=== PATIENT | female | born 1965 | race Hispanic/Latino ===

== ENCOUNTER 2018-03-18 17:17 | Emergency (ER) | payer BC ==
--- NOTE | 2018-03-18 18:45 | ED.PDOC ---
History of Present Illness - General Chief Complaint: General Stated Complaint: needs labs for dialysis Time Seen by Provider: 03/18/18 17:21 Source: patient, family Exam Limitations: no limitations - History of Present Illness Initial Comments: The patient is a 52-year-old female presenting to the emergency room after she was sent here from the dialysis center for workup to see if she needs dialysis. The patient has been receiving dialysis in [place] for the last 3-4 months for renal failure. Source of the renal failure she thinks is her diabetes and high blood pressure. She is uncertain of the details. She does have an indwelling internal jugular catheter for dialysis. She is actually feeling fine. She had dialysis one week ago. She has not yet been set up with nephrology here. She has not had dialysis in the [place]. She was sent here for evaluation to see if she needs emergent dialysis or to see if she can follow-up with nephrology in the coming days Timing/Duration: unsure Severity: mild Improving Factors: nothing Worsening Factors: nothing Associated Symptoms: denies symptoms Allergies/Adverse Reactions: Allergies NO KNOWN ALLERGY Allergy (Verified 10/23/16 18:49) Home Medications: Ambulatory Orders Lisinopril [Prinivil] 10 mg PO DAILY #30 tab 10/26/16 Ferrous Sulfate [Slow Release Iron] 250 mg PO DAILY 03/18/18 Furosemide 40 mg PO BID 03/18/18 Linagliptin [Tradjenta] 5 mg PO BID 03/18/18 Omeprazole 20 mg PO DAILY 03/18/18 Pravastatin Sodium 10 mg PO DAILY 03/18/18 Review of Systems - Review of Systems Constitutional: States: no symptoms reported EENTM: States: no symptoms reported Respiratory: States: no symptoms reported Cardiology: States: no symptoms reported Gastrointestinal/Abdominal: States: no symptoms reported Genitourinary: States: no symptoms reported Musculoskeletal: States: no symptoms reported Skin: States: no symptoms reported Neurological: States: no symptoms reported Endocrine: States: no symptoms reported All other Systems: No Change from Baseline Past Medical History (General) - Patient Medical History Hx Seizures: No Hx Stroke: No Hx Asthma: No Hx of COPD: No Hx Congestive Heart Failure: No Hx Pacemaker: No Hx Hypertension: Yes Hx Diabetes: Yes Hx Renal Disease: Yes Hx MRSA: No - Vaccination History Hx Influenza Vaccination: No Hx Pneumococcal Vaccination: No - Social History Hx Tobacco Use: No Hx Alcohol Use: No Hx Substance Use: No Hx Substance Use Treatment: No Hx Depression: No - Female History Patient : No Family Medical History - Family History Mother Family History: Unknown Physical Exam - Physical Exam General Appearance: Alert, Comfortable, No apparent distress Eye Exam: bilateral normal Ears, Nose, Throat: hearing grossly normal, normal ENT inspection, normal pharynx Neck: full range of motion, supple, other - ight IJ is in place Respiratory: lungs clear, normal breath sounds, no respiratory distress, no accessory muscle use Cardiovascular/Chest: normal peripheral pulses, regular rate, rhythm, no edema Peripheral Pulses: radial,right: 2+, radial,left: 2+, dorsalis pedis,right: 2+, dorsalis pedis,left: 2+ Gastrointestinal/Abdominal: non tender, soft Rectal Exam: deferred Back Exam: normal inspection, no CVA tenderness, no vertebral tenderness Extremity: normal range of motion, non-tender, normal inspection, no pedal edema Neurologic: alert, normal mood/affect, oriented x 3 Skin Exam: normal color Comments: Vital Signs - 24 hr 03/18/18 17:35 Temperature 96 F L Pulse Rate [ 88 Left Brachial] Respiratory 18 Rate Blood Pressure 158/78 [Left Arm] O2 Sat by Pulse 99 Oximetry Progress - Progress Progress: 03/18/18 18:45 the patient is a 52-year-old female presenting to the emergency room for evaluation to determine if she needs emergent dialysis. Lab work is reassuring. clinically the patient appears stable. The patient is to follow- up with Dr. Boothe either Friday or Friday morning at 8:30. They need to contact his office tomorrow to set up the appointment. Lab work is reassuring and the patient can return to emergency room for any acute worsening. Lab work is as below. She needs to obtain a primary care doctor as well. Laboratory Results - last 24 hr 03/18/18 03/18/18 03/18/18 18:00 18:00 18:00 WBC 4.6 L RBC 3.07 L Hgb 8.6 L Hct 26.2 L MCV 85.4 MCH 28.0 MCHC 32.9 L RDW 15.6 H Plt Count 399 MPV 7.0 L Absolute Neuts (auto) 2.90 Absolute Lymphs (auto) 1.30 Absolute Monos (auto) 0.30 Absolute Eos (auto) 0.10 Absolute Basos (auto) 0.00 Neutrophils % 62.1 Lymphocytes % 27.9 Monocytes % 7.0 Eosinophils % 2.0 Basophils % 1.0 PT 11.0 INR 0.950 PTT (SP) 30.9 Sodium 132 L Potassium 4.1 Chloride 96 L Carbon Dioxide 27 Anion Gap 13.1 BUN 48 H Creatinine 3.65 H BUN/Creatinine Ratio 13.2 Random Glucose 245 H Serum Osmolality 285.3 Calcium 8.9 Phosphorus Total Bilirubin 0.7 AST 24 ALT 17 Alkaline Phosphatase 41 L Serum Total Protein 6.9 Albumin 3.4 Globulin 3.5 Albumin/Globulin Ratio 1.0 L 03/18/18 18:00 WBC RBC Hgb Hct MCV MCH MCHC RDW Plt Count MPV Absolute Neuts (auto) Absolute Lymphs (auto) Absolute Monos (auto) Absolute Eos (auto) Absolute Basos (auto) Neutrophils % Lymphocytes % Monocytes % Eosinophils % Basophils % PT INR PTT (SP) Sodium Potassium Chloride Carbon Dioxide Anion Gap BUN Creatinine BUN/Creatinine Ratio Random Glucose Serum Osmolality Calcium Phosphorus 4.3 Total Bilirubin AST ALT Alkaline Phosphatase Serum Total Protein Albumin Globulin Albumin/Globulin Ratio Departure - Departure Clinical Impression: Chronic renal failure Qualifiers: Chronic kidney disease stage: stage 4 (severe) Qualified Code(s): N18.4 - Chronic kidney disease, stage 4 (severe) Disposition: Discharge to Home or Self Care Condition: Fair Departure Forms: ED Discharge - Pt. Copy, Patient Portal Self Enrollment Instructions: Chronic Renal Failure Diet: diabetic diet Activity: increase activity as tolerated Home Medications: Ambulatory Orders Lisinopril [Prinivil] 10 mg PO DAILY #30 tab 10/26/16 Ferrous Sulfate [Slow Release Iron] 250 mg PO DAILY 03/18/18 Furosemide 40 mg PO BID 03/18/18 Linagliptin [Tradjenta] 5 mg PO BID 03/18/18 Omeprazole 20 mg PO DAILY 03/18/18 Pravastatin Sodium 10 mg PO DAILY 03/18/18 Additional Instructions: the patient is a 52-year-old female presenting to the emergency room for evaluation to determine if she needs emergent dialysis. Lab work is reassuring. clinically the patient appears stable. The patient is to follow- up with Dr. Boothe either Friday or Friday morning at 8:30. They need to contact his office tomorrow to set up the appointment. Lab work is reassuring and the patient can return to emergency room for any acute worsening. Lab work is as below. She needs to obtain a primary care doctor as well. Laboratory Results - last 24 hr 03/18/18 03/18/18 03/18/18 18:00 18:00 18:00 WBC 4.6 L RBC 3.07 L Hgb 8.6 L Hct 26.2 L MCV 85.4 MCH 28.0 MCHC 32.9 L RDW 15.6 H Plt Count 399 MPV 7.0 L Absolute Neuts (auto) 2.90 Absolute Lymphs (auto) 1.30 Absolute Monos (auto) 0.30 Absolute Eos (auto) 0.10 Absolute Basos (auto) 0.00 Neutrophils % 62.1 Lymphocytes % 27.9 Monocytes % 7.0 Eosinophils % 2.0 Basophils % 1.0 PT 11.0 INR 0.950 PTT (SP) 30.9 Sodium 132 L Potassium 4.1 Chloride 96 L Carbon Dioxide 27 Anion Gap 13.1 BUN 48 H Creatinine 3.65 H BUN/Creatinine Ratio 13.2 Random Glucose 245 H Serum Osmolality 285.3 Calcium 8.9 Phosphorus Total Bilirubin 0.7 AST 24 ALT 17 Alkaline Phosphatase 41 L Serum Total Protein 6.9 Albumin 3.4 Globulin 3.5 Albumin/Globulin Ratio 1.0 L 03/18/18 18:00 WBC RBC Hgb Hct MCV MCH MCHC RDW Plt Count MPV Absolute Neuts (auto) Absolute Lymphs (auto) Absolute Monos (auto) Absolute Eos (auto) Absolute Basos (auto) Neutrophils % Lymphocytes % Monocytes % Eosinophils % Basophils % PT INR PTT (SP) Sodium Potassium Chloride Carbon Dioxide Anion Gap BUN Creatinine BUN/Creatinine Ratio Random Glucose Serum Osmolality Calcium Phosphorus 4.3 Total Bilirubin AST ALT Alkaline Phosphatase Serum Total Protein Albumin Globulin Albumin/Globulin Ratio
[2018-03-18 19:00] VITALS: BP 155/84; TEMP 97.2; O2SAT 96
== END 2018-03-18 19:00 | disposition home or self-care (01) ==
LOC: ER 17:17
DX: I12.9 Hypertensive chronic kidney disease with stage 1 through stage 4 chronic kidney disease, or unspecified chronic kidney disease (principal); E11.22 Type 2 diabetes mellitus with diabetic chronic kidney disease; N18.4 Chronic kidney disease, stage 4 (severe); Z99.2 Dependence on renal dialysis; Z79.899 Other long term (current) drug therapy; Z79.84 Long term (current) use of oral hypoglycemic drugs

== ENCOUNTER → 2018-03-25 | Outpatient (CLI) | payer BC | LOC: LAB.O 09:22 | PROVIDERS: ATTEND Internal Medicine Nephrology | DX: N18.6 End stage renal disease (principal) ==

== ENCOUNTER → 2018-03-30 | Outpatient (CLI) | payer BC ==
--- NOTE | 2018-03-30 10:07 | US ---
EXAM DESCRIPTION: Renal CLINICAL HISTORY: 52 years Female, RENAL DISEASE COMPARISON: None. TECHNIQUE: Retroperitoneal sonogram was performed to evaluate the kidneys and bladder. FINDINGS: Right kidney Right renal length is 11.6 cm. Renal cortical echogenicity appears slightly increased consistent with chronic renal parenchymal disease. Mild focal cortical scarring in the lower half of the right kidney. Question sonolucent pyramid or small cyst in the lower half of the right kidney measuring 1.1 cm. This appears benign. No hydronephrosis. Left kidney Left renal length is 9.1 cm which is small for an adult suggesting global scarring or atrophy. Renal echogenicity appears mildly increased. Mild diffuse cortical thinning is present. No left renal mass, cyst or shadowing stone. No hydronephrosis. Note images of the urinary bladder are not included. On some images, the lower aorta is normal in caliber. Question partial visualization of the inferior vena cava. IMPRESSION: Increased echogenicity of the kidneys with small right renal cyst. Negative for hydronephrosis. Electronically signed by: Paulino Khoury MD 03/30/2018 10:06 AM CDT
== END ==
LOC: US 08:26
PROVIDERS: ATTEND Internal Medicine Nephrology
DX: N18.6 End stage renal disease (principal)

== ENCOUNTER → 2018-04-15 | Outpatient (CLI) | payer BC | LOC: LAB.O 10:36 | PROVIDERS: ATTEND Internal Medicine Nephrology | DX: N18.6 End stage renal disease (principal) ==

== ENCOUNTER → 2018-05-19 | Outpatient (CLI) | payer BC | LOC: LAB.O 08:16 | PROVIDERS: ATTEND Internal Medicine Nephrology | DX: N18.5 Chronic kidney disease, stage 5 (principal) ==

== ENCOUNTER → 2018-06-16 | Outpatient (CLI) | payer BC | LOC: LAB.O 14:51 | PROVIDERS: ATTEND Internal Medicine Nephrology | DX: N18.5 Chronic kidney disease, stage 5 (principal) ==

== ENCOUNTER → 2018-08-27 | Outpatient (CLI) | payer BC | LOC: LAB.O 11:56 | PROVIDERS: ATTEND Internal Medicine Nephrology | DX: D50.9 Iron deficiency anemia, unspecified (principal); N18.9 Chronic kidney disease, unspecified; D63.1 Anemia in chronic kidney disease ==

== ENCOUNTER → 2018-09-14 | Outpatient (CLI) | payer BC | LOC: LAB.O 11:02 | PROVIDERS: ATTEND Internal Medicine Nephrology | DX: N18.4 Chronic kidney disease, stage 4 (severe) (principal) ==

== ENCOUNTER 2019-06-07 05:37 | Day surgery (SDC) | payer BC ==
[2019-06-07] MEDS ORDERED: PROPARACAINE 0.5% OPHTH SOL 15 ML BTTL ONE (05:56)
[2019-06-07] MEDS ORDERED: TROP 1%/CYCLOPEN 1%/PHENYL 2% DROPS ONE (05:56)
[2019-06-07] MEDS ORDERED: MOXIFLOXACIN HCL (OPHTH) 1 DROP DROPS ONE (05:56)
[2019-06-07] MEDS ORDERED: MIDAZOLAM INJ 2 MG/2 ML VIAL ONE (07:13)
[2019-06-07] MEDS ORDERED: LIDOCAINE 1% MPF 2 ML VIAL INJ ONE (08:26)
[2019-06-07] MEDS ORDERED: MOXIFLOXACIN HCL (OPHTH) 1 DROP DROPS RIGHT_EYE ONE ×2 (08:29→08:37)
[2019-06-07] MEDS ORDERED: BRIMONIDINE 0.2% OPHTH DROPS RIGHT_EYE ONE ×3 (08:30→08:39)
[2019-06-07] MEDS ORDERED: DEXAMETHASONE 0.1% OPHTH SOL 1 DROP RIGHT_EYE ONE ×3 (08:30→08:39)
[2019-06-07] MEDS ORDERED: TOBRAMYCIN SULF 0.3 % OPHT SOL 1 DROP RIGHT_EYE ONE ×3 (08:30→08:39)
== END 2019-06-07 09:15 | disposition home or self-care (01) ==
LOC: AMB 05:37
PROVIDERS: ATTEND Ophthalmology
DX: H25.11 Age-related nuclear cataract, right eye (principal); E11.36 Type 2 diabetes mellitus with diabetic cataract; Z79.4 Long term (current) use of insulin; Z79.899 Other long term (current) drug therapy
CPT/HCPCS: 00142; 36416; 66984; 82948; J2250

== ENCOUNTER 2019-06-21 05:49 | Day surgery (SDC) | payer BC ==
[2019-06-21] MEDS ORDERED: MIDAZOLAM INJ 2 MG/2 ML VIAL ONE (06:58)
[2019-06-21] MEDS ORDERED: TROP 1%/CYCLOPEN 1%/PHENYL 2% DROPS ONE (07:00)
[2019-06-21] MEDS ORDERED: PROPARACAINE 0.5% OPHTH SOL 15 ML BTTL LEFT_EYE ONE (10:00)
[2019-06-21] MEDS ORDERED: LIDOCAINE 1% MPF 2 ML VIAL INJ ONE (10:08)
[2019-06-21] MEDS ORDERED: MOXIFLOXACIN HCL (OPHTH) 1 DROP DROPS LEFT_EYE ONE ×2 (10:13→10:21)
[2019-06-21] MEDS ORDERED: DEXAMETHASONE 0.1% OPHTH SOL 1 DROP LEFT_EYE ONE ×4 (10:13→10:23)
[2019-06-21] MEDS ORDERED: TOBRAMYCIN SULF 0.3 % OPHT SOL 1 DROP LEFT_EYE ONE ×4 (10:14→10:23)
[2019-06-21] MEDS ORDERED: BRIMONIDINE 0.2% OPHTH DROPS LEFT_EYE ONE ×4 (10:14→10:23)
== END 2019-06-21 11:15 | disposition home or self-care (01) ==
LOC: AMB 05:49
PROVIDERS: ATTEND Ophthalmology
DX: H25.11 Age-related nuclear cataract, right eye (principal); E11.36 Type 2 diabetes mellitus with diabetic cataract; Z79.4 Long term (current) use of insulin; Z79.899 Other long term (current) drug therapy
CPT/HCPCS: 00142; 36416; 66984; 82948; J2250